=== PATIENT | female | born 1990 | race American Indian/Alaskan Native ===

== ENCOUNTER 2017-05-19 13:54 | Emergency (ER) | payer MEDICAID, OTHER ==
[2017-05-19 14:43] VITALS: RESP 18; TEMP 99.4
[2017-05-19 15:06] LABS: HCG,QUALITATIVE URINE NEGATIVE (NEGATIVE)
[2017-05-19 15:12] LABS: SQUAMOUS EPITHIAL 47 /hpf (0-5); URINE AMORPHOUS SEDIMENT RARE /ul (<OCC); URINE BACTERIA RARE (<OCC); URINE BILIRUBIN NEGATIVE (NEGATIVE); URINE BLOOD 1+ (NEGATIVE); URINE CLARITY Hazy (Clear); URINE COLOR Yellow (YELLOW); URINE GLUCOSE (UA) NORMAL (Normal); URINE LEUKOCYTE ESTERASE TRACE Leu/uL (Negative); URINE PROTEIN NEGATIVE (NEGATIVE); URINE UROBILINOGEN NORMAL mg/dL (0.2-1.0)
--- NOTE | 2017-05-19 15:43 | C.PDOC ---
History Of Present Illness Patient is a 26 year old female ( LMP: 05/06/17) with past medical history of hyperthyroidism and childhood asthma, who presents to the ED with complaints of urinary urgency and pressure upon urination for the past 1-3 days. Patient estimated that she had her first UTI at age 19 and has 2-3 more episodes of UTI since then. Patient denies fever, chills, nausea, vomiting, hematuria, flank pain and burning with urination, palpitations and SOB. Time Seen by Provider: 05/19/17 15:26 Chief Complaint (Nursing): Female Genitourinary History Per: Patient History/Exam Limitations: no limitations Onset/Duration Of Symptoms: Days Current Symptoms Are (Timing): Still Present Severity: Mild Pain Scale Rating Of: 2 Recent travel outside of the [place]: No Additional History Per: Patient Past Medical History Vital Signs: Last Vital Signs Temp 99.4 F 05/19/17 14:40 Pulse 99 H 05/19/17 14:40 Resp 18 05/19/17 14:40 BP 141/99 H 05/19/17 14:40 Pulse Ox 104 H 05/19/17 16:18 - Medical History PMH: Asthma, Hyperthyroidism Other Surgeries: Right Ear keloid removal Family History: States: Hypertension - Social History Hx Alcohol Use: Yes Hx Substance Use: No - Immunization History Hx Tetanus Toxoid Vaccination: No Hx Influenza Vaccination: No Hx Pneumococcal Vaccination: No Review Of Systems Constitutional: Negative for: Fever, Chills Cardiovascular: Negative for: Chest Pain, Palpitations, Light Headedness Respiratory: Negative for: Shortness of Breath Gastrointestinal: Negative for: Nausea, Vomiting, Abdominal Pain, Diarrhea, Hematochezia, Hematemesis Genitourinary: Positive for: Frequency. Negative for: Dysuria, Hematuria, Rash Musculoskeletal: Negative for: Back Pain Skin: Negative for: Rash Neurological: Negative for: Weakness, Numbness Physical Exam - Physical Exam Appears: No Acute Distress Skin: Normal Color Head: Atraumatic, Normacephalic Cardiovascular: Rhythm Regular, No Murmur Respiratory: Normal Breath Sounds, No Decreased Breath Sounds, No Accessory Muscle Use Gastrointestinal/Abdominal: Normal Exam, Bowel Sounds, Soft, No Tenderness, No Distention, No Guarding, No Rebound Back: Normal Inspection, No CVA Tenderness Extremity: Normal ROM, No Tenderness, No Pedal Edema Extremity: Bilateral: Atraumatic Neurological/Psych: Oriented x3, Normal Speech, Normal Cognition ED Course And Treatment O2 Sat by Pulse Oximetry: 104 Disposition Discuss[address] Dr.: Sammy Black - Disposition Referrals: [facility] [Outside] Disposition: HOME/ ROUTINE Disposition Time: 16:21 Condition: GOOD Additional Instructions: Please discharge patient home Please take Bactrim 1 tablet q12h for 5 days Please follow up with [facility] for urine culture results Please follow up with your primary care physician within 1-2 days Please return to the hospital if symptoms worsens within two days. Prescriptions: Sulfamethoxazole/Trimethoprim [Bactrim Ds Tablet] 1 each PO Q12H 5 Days tablet Forms: [facility] (Estonian), General Discharge Instructions - Clinical Impression Clinical Impression: Urinary tract infection
[2017-05-19 17:39] VITALS: BP 118/72; PULSE 83; O2SAT 99
== END 2017-05-19 17:39 | disposition home or self-care (01) ==
LOC: C.ER 13:54
DX: N39.0 Urinary tract infection, site not specified (principal)

== ENCOUNTER 2017-05-25 14:18 | Emergency (ER) | payer MEDICAID ==
[2017-05-25 14:33] VITALS: BMI 23.4
[2017-05-25 14:36] VITALS: BP 149/88; PULSE 100; RESP 20; TEMP 98.7; O2SAT 100
--- NOTE | 2017-05-25 16:14 | C.PDOC ---
History Of Present Illness 26 y/o female presents to ED with complaints of persistent dysuria. Patient was seen at ED 1 week ago for same symptoms and urinary frequency, given antibiotics. Patient reports urinary frequency resolved but dysuria is persistent which prompted visit to ED today. Patient denies fever, chills, vomiting, abdominal pain or any other complaints at this time. Chief Complaint (Nursing): Female Genitourinary History Per: Patient History/Exam Limitations: no limitations Onset/Duration Of Symptoms: Days Current Symptoms Are (Timing): Still Present Past Medical History Reviewed: Historical Data, Nursing Documentation, Vital Signs Vital Signs: Last Vital Signs Temp 98.7 F 05/25/17 14:34 Pulse 100 H 05/25/17 14:34 Resp 20 05/25/17 14:34 BP 149/88 05/25/17 14:34 Pulse Ox 100 05/25/17 16:18 - Medical History PMH: Asthma, Hyperthyroidism Surgical History: No Surg Hx Family History: States: Hypertension - Social History Hx Alcohol Use: Yes Hx Substance Use: No - Immunization History Hx Tetanus Toxoid Vaccination: No Hx Influenza Vaccination: No Hx Pneumococcal Vaccination: No Review Of Systems Constitutional: Negative for: Fever, Chills Gastrointestinal: Negative for: Nausea, Vomiting, Abdominal Pain Genitourinary: Positive for: Dysuria. Negative for: Frequency Physical Exam - Physical Exam Appears: Non-toxic, No Acute Distress Skin: Warm, Dry, No Rash Head: Atraumatic, Normacephalic Eye(s): bilateral: Normal Inspection Oral Mucosa: Moist Neck: Normal ROM, Supple Cardiovascular: Rhythm Regular Respiratory: Normal Breath Sounds, No Rales, No Rhonchi, No Wheezing Gastrointestinal/Abdominal: Soft, No Tenderness, No Guarding, No Rebound Back: No CVA Tenderness Extremity: Normal ROM, Capillary Refill (<2 seconds) Neurological/Psych: Oriented x3, Normal Speech ED Course And Treatment O2 Sat by Pulse Oximetry: 100 (RA) Pulse Ox Interpretation: Normal Disposition - [facility] - Disposition: HOME/ ROUTINE Disposition Time: 15:10 Condition: GOOD Additional Instructions: Thank you for letting us take care of you today. The emergency medical care you received today was directed at your acute symptoms. If you were prescribed any medication, please fill it and take as directed. It may take several days for your symptoms to resolve. Return to the Emergency Department if your symptoms worsen, do not improve, or if you have any other problems. Please contact your doctor or call one of the physicians/clinics you have been referred to that are listed on the Patient Visit Information form that is included in your discharge packet. Bring any paperwork you were given at discharge with you along with any medications you are taking to your follow up visit. Our treatment cannot replace ongoing medical care by a primary care provider (PCP) outside of the emergency department. Thank you for allowing the [facility] team to be part of your care today. Follow up with your primary care doctor in 2-3 days for re-evaluation and further management. Prescriptions: Sulfamethoxazole/Trimethoprim [Bactrim 400-80 mg Tablet] 1 each PO BID #10 tablet Instructions: Acute Cystitis (DC) Forms: [facility] (Slovak) - Clinical Impression Clinical Impression: Cystitis - Scribe Statement The provider has reviewed the documentation as recorded by the Mikey Mccarty All medical record entries made by the Larsibraz were at my direction and personally dictated by me. I have reviewed the chart and agree that the record accurately reflects my personal performance of the history, physical exam, medical decision making, and the department course for this patient. I have also personally directed, reviewed, and agree with the discharge instructions and disposition.
== END 2017-05-25 15:27 | disposition home or self-care (01) ==
LOC: C.ER 14:18
DX: N30.90 Cystitis, unspecified without hematuria (principal)